=== PATIENT | female | born 1960 | race African-American/Black ===

== ENCOUNTER 2018-09-19 05:16 | Day surgery (SDC) | payer BC ==
[2018-09-17 16:46] VITALS: BMI 27.1
--- NOTE | 2018-09-19 05:02 | HP ---
[facility] - Chief Complaint Chief Complaint: This patient is here to have an endometrial polyp removed by hysteroscopy and polypectomy and D/C. History of Present Illness: This patient recently had a sonogram revealing the presence of an endometrial lesion possibly an endometrial polyp or fibroid. 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: No: Alzheimer's, CVA, Dementia, Migraine, Multiple Sclerosis, Peripheral Neuropathy, Parkinson's, Seizure, Syncope, TIA, Vertigo, Other Cardiovascular: No: AFIB, Aneurysm, Aortic Insufficiency, Aortic Stenosis, CAD, CHF, Deep Vein Thrombosis, HTN, Hyperlipdemia, MT, Mitral Insufficiency, Mitral Stenosis, Murmur, Pulmonary Hypertension, Other Pulmonary: No: Asthma, Bronchitis, Cancer, COPD, O2 Dependent, Pneumonia, Previously Intubated, Pulmonary Embolus, Pulmonary Fibrosis, Sleep Apnea, Other Gastrointestinal: No: Ascites, Cancer, Constipation, Crohn's Disease, Diverticulitis, Diverticulosis, Esophageal Varices, Gastritis, GERD, GI Bleed, Hemorrhoids, Hiatal Hernia, Inflamatory Bowel Disease, Irritable Bowel Disease, Pancreatitis, Peptic Ulcer Disease, Ulcerative Colitis, Other Hepatobiliary: No: Cirrhosis, Cholelithiasis, Cholecystitis, Choledocholithiasis , Hepatitis A, Hepatitis B, Hepatitis C, Other Renal/: No: Renal Failure, Renal Inusuff, BPH, Cancer, Hematuria, Hemodialysis , Neurogenic Bladder, Renal Calculi, UTI, Other Reproductive: No: Ectopic , Endometriosis, Fibroids, PID, Polycystic Ovary Syndrome, Postmenopausal, Other ...LMP: 06/02/12 ...: No ...: 2 ...Para: 2 Heme/Onc: No: Anemia, B12 Deficiency, Bleeding Disorder, Cancer, Current Chemotherapy, Current Radiation Therapy, Hemochromatosis, Hypercoaguable State, Myeloproliferative Synd, Sickle Cell Disease, Sickle Cell Trait, Thrombocytopenia, Other Infectious Disease: No: AIDS, C-Diff, Herpes Zoster, HIV, MRSA, STD's, Tuberculosis, VREF, Other Musculoskeletal: No: Bursitis, Chronic low back pain, Hemiparesis, Hemiplegia, Osteoarthritis, Paraplegia, Other Rheumatology: No: Fibromyalgia, Gout, Lupus, Rheumatoid Arthritis, Sarcoidosis, Vasculitis, Other ENT: No: Allergic Rhinitis, Sinusitis, Other Endocrine: No: Mccone's Disease, [place]'s Disease, Diabetes Insipidus, Diabetes Mellitus, Hyperparathyroidism, Hyperthyroidism, Hypothyroidism, Osteopenia, SIADH, Other Dermatology: No: Basal Cell, Cellulitis, Eczema, Melanoma, Psoriasis, Squamous Cell, Other - Current Medications Current Medications: Home Medications Medication Instructions Recorded Ibuprofen [Advil -] 400 mg PO PRN 09/17/18 Satellite Physical Exam - Physical Examination General Appearance: Well Nourished, Well Developed, Alert & Oriented x3 ENT: Clear, No Discharge, No masses Lung: Clear to auscultation Heart: Regular rate & rhythm, Normal S1, Normal S2 Breasts: Soft, Non-Tender, No masses bilaterally Abdomen: Soft, No tenderness, No CVA Extremities: No edema, No tenderness/swelling Pelvic Exam: Within normal limits External Genitalia, Within normal limits Vagina, Within normal limits Cervix, Other Uterus (fibroids), Other [employer] Neurological: Intact, Alert, Oriented Satellite Impression/Plan - Impression/Plan Impression: Endometrial polyp and fibroids of the uterus Operative Procedure: Hysteroscopy and polypectomy and D/C Date to be Performed: 09/19/18
[2018-09-19] MEDS ORDERED: PROPOFOL 20 ML ONE (07:09)
[2018-09-19] MEDS ORDERED: SUCCINYLCHOLINE CHLORIDE 200 MG/10 ML VIAL ONE (07:09)
[2018-09-19] MEDS ORDERED: MIDAZOLAM HCL 2 MG/2 ML SINGLE DOSE VIAL ONE (07:09)
[2018-09-19] MEDS ORDERED: DEXAMETHASONE SOD PHOSPHATE 4 MG/1 ML VIAL ONE (07:09)
[2018-09-19] MEDS ORDERED: DESFLURANE GAS 240 ML BOTTLE IH ONE (07:12)
[2018-09-19] MEDS ORDERED: SEVOFLURANE 250 ML BTL ONE (07:12)
[2018-09-19] MEDS ORDERED: oxyCODONE HCL 5 MG TABLET PO PRN (08:59)
[2018-09-19] MEDS ORDERED: LACTATED RINGERS SOLUTION 1,000 ML IV SCH (09:00)
--- NOTE | 2018-09-19 09:16 | OP ---
DATE OF OPERATION: 09/19/2018 PREOPERATIVE DIAGNOSIS: Endometrial polyp, fibroid uterus. POSTOPERATIVE DIAGNOSIS: Fibroid uterus. PROCEDURES PERFORMED: Hysteroscopy, followed by dilatation and curettage. SURGEON: Quinn Wiley MD ANESTHESIA: MAC anesthetic given by the fine grade bulldozer operator. ESTIMATED BLOOD LOSS: Approximately 15 mL. DESCRIPTION OF PROCEDURE: The patient was brought to the operating room, placed in the supine position, given MAC anesthesia, placed in the lithotomy position, prepped and draped in the usual manner. The patient was examined. The uterus was noted to be anteverted and enlarged by multiple fibroids. Adnexa negative. The anterior lip of the cervix was grasped with a tenaculum after the vagina was prepped and draped in the usual manner with Betadine. The uterus was then sounded to 9 cm. The cervix was dilated with James dilators. Hysteroscopy was carried out with the Symphion hysteroscope. The patient was noted to have bands of adhesions in the fundal area of the uterus. Polyp was not seen. Therefore, a dilatation and curettage was carried out. Scant tissue was obtained and sent to Pathology for analysis. The procedure was then terminated. The patient had a fluid deficit of 700 mL. Her estimated blood loss was approximately 15 mL. The patient did well and then was transferred to the recovery room for observation. QUINN WILEY M.D. [id number]
[2018-09-19 10:42] VITALS: BP 138/67; PULSE 69; TEMP 97.9
--- NOTE | 2018-09-22 17:54 | PATH ---
Surgical Pathology Report Patient Name: DANA COX [facility]. Rec. #: [id number] /Age/Gender: 1960 (Age: 58) / F Account: [id number] Location: [facility] SURGICAL Taken: 09/19/2018 Received: 09/19/2018 Reported: 09/22/2018 Physicians: Emil Wiley M.D. Specimen(s) Received ENDOMETRIAL CURETTINGS Clinical History Endometrial polyp Final Diagnosis ENDOMETRIAL CURETTINGS: STROMAL TISSUE, PREDOMINANTLY SMOOTH MUSCLE BUNDLES, AND SCANTY ENDOCERVICAL TISSUE WITH SQUAMOUS METAPLASIA. NO ENDOMETRIAL TISSUE PRESENT FOR EVALUATION, CLINICAL CORRELATION IS RECOMMENDED. Electronically Signed Jesus Art M.D. Gross Description Received in formalin labeled "endometrial curettings," is a 0.5 x 0.5 x 0.1 cm aggregate of santoro soft tissue fragments. The formalin is filtered and the specimen is entirely submitted in one cassette. /09/19/2018 saudi09/19/2018
== END 2018-09-19 10:40 | disposition home or self-care (01) ==
LOC: JASU-SURG 05:16
PROVIDERS: ATTEND Obstetrics & Gynecology
PROC: 0UDB7ZX Extraction of Endometrium, Via Natural or Artificial Opening, Diagnostic (ICD-10-PCS; principal; 2018-09-19 08:00)
PROC: 0UJD8ZZ Inspection of Uterus and Cervix, Via Natural or Artificial Opening Endoscopic (ICD-10-PCS; 2018-09-19 08:00)
DX: D25.9 Leiomyoma of uterus, unspecified (principal)
CPT/HCPCS: 88305-TC; 94760

== ENCOUNTER 2018-12-16 08:00 | Inpatient (IN) | payer BC ==
[2018-12-22 16:43] VITALS: BMI 26.6
--- NOTE | 2018-12-23 07:49 | HP ---
History & Physical Update - History History: No Change - Physical Physical: No Change - Assessment Assessment: No Change - Plan Plan: No Change (H&P reviwed, no changes)
[2018-12-23] MEDS ORDERED: SODIUM CHLORIDE 0.9% P/F 10 ML VIAL IJ ONE (08:14)
[2018-12-23] MEDS ORDERED: ceFAZolin SODIUM 1 GM VIAL ONE ×2 (08:14→09:35)
[2018-12-23] MEDS ORDERED: LIDOCAINE HCL/PF 2% SDV 5ML VIAL ONE (08:14)
[2018-12-23] MEDS ORDERED: KETOROLAC TROMETHAMINE 30 MG/1 ML VIAL ONE ×2 (08:14→09:35)
[2018-12-23] MEDS ORDERED: DEXAMETHASONE SOD PHOSPHATE 4 MG/1 ML VIAL ONE ×2 (08:14→09:35)
[2018-12-23] MEDS ORDERED: PROPOFOL 20 ML ONE ×2 (08:14→08:48)
[2018-12-23] MEDS ORDERED: ROCURONIUM BROMIDE 50 MG/5 ML VIAL ONE ×3 (08:15→10:05)
[2018-12-23] MEDS ORDERED: MIDAZOLAM HCL 2 MG/2 ML SINGLE DOSE VIAL ONE ×2 (08:28)
[2018-12-23] MEDS ORDERED: BUPIVACAINE HCL/PF 0.5% (5MG/ML) 10 ML VIAL ONE (08:29)
[2018-12-23] MEDS ORDERED: HYDROmorphone HCl 2 MG/ML VIAL ONE (08:48)
[2018-12-23] MEDS ORDERED: SUCCINYLCHOLINE CHLORIDE 200 MG/10 ML VIAL ONE (08:48)
[2018-12-23] MEDS ORDERED: fentaNYL CITRATE 250 MCG/5 ML VIAL ONE (08:48)
[2018-12-23] MEDS ORDERED: ceFAZolin 2 GRAM PREMIX BAG IVPB ONE (09:35)
[2018-12-23] MEDS ORDERED: GLYCOPYRROLATE 0.2 MG/1 ML VIAL ONE (10:05)
[2018-12-23] MEDS ORDERED: NEOSTIGMINE METHYLSULFATE 0.5 MG/ML - 10 ML MDV ONE (10:05)
[2018-12-23] MEDS ORDERED: IBUPROFEN 600 MG TABLET (FP) PO PRN (11:58)
[2018-12-23] MEDS ORDERED: IBUPROFEN 800 MG/8 ML IJ IVPB PRN (11:58)
[2018-12-23] MEDS ORDERED: ONDANSETRON 4 MG/2 ML VIAL IVPUSH PRN ×2 (11:58→12:28)
[2018-12-23] MEDS ORDERED: ELECTROLYTE-148 SOLN 1,000 ML IV SCH (12:00)
[2018-12-23] MEDS ORDERED: HYDROmorphone *PCA* 10MG/50ML DISP.SYRIN PCA ONE ×2 (13:20→13:30)
[2018-12-23] MEDS ORDERED: LABETALOL HCL 5 MG/1 ML (100MG/20 ML VIAL) IVPUSH ONE ×2 (14:00→14:10)
--- NOTE | 2018-12-23 14:03 | OP ---
DATE OF OPERATION: 12/23/2018 PREOPERATIVE DIAGNOSES: Endometrial cancer, fibroid uterus. POSTOPERATIVE DIAGNOSES: Endometrial cancer, fibroid uterus. SURGEON: Gareth Ford MD and Mattie Webb MD ANESTHESIA: General. ESTIMATED BLOOD LOSS: 200 mL. DESCRIPTION OF OPERATION: Patient was taken to the operating room. Under adequate general anesthesia in dorsal supine position, abdomen and perineum were prepped and draped. Pfannenstiel abdominal skin incision was made. Abdominal wall was cut layer by layer. Anterior peritoneum was exposed and incised. Upon entering the abdominal cavity, pelvic washing was done, and upper abdomen was checked, was normal. Bowels were packed away. Uterus was enlarged with multiple myomas. Bladder was normal. No pelvic adhesions. Then, bowels were packed away. [place] retractor was placed in the pelvic cavity for retraction. Then, both round ligaments were identified, clamped with a Elizabeth clamp, and suture, then cut. Then, the anterior leaf of broad ligament was opened, and the posterior leaf was opened. The ureter was identified bilaterally. Then, both infundibulopelvic ligaments were clamped with a right-angle clamp and cut and the clamp replaced with first 0 Vicryl tags and then with 0 Vicryl suture bilaterally. Then, bladder was further pushed down. Uterine artery was identified bilaterally, clamped with Quinten clamp, cut, and the clamp replaced with 0 Vicryl suture bilaterally. Paracervical area was clamped with Quinten clamp, cut, and the clamp replaced with 0 Vicryl suture bilaterally. Bladder was further pushed down. Then, cervicovaginal angle was clamped with Quinten clamp and cut, and the clamp replaced with 0 Vicryl suture bilaterally. Specimen removed in its entirety. Then, vaginal cuff was sutured with interrupted suture of 2-0 Vicryl. No active bleeding was seen. Pelvic cavity several times irrigated. Then, Dr. Webb did a pelvic node biopsy which she will dictate the operative report. After the completion of pelvic , several times irrigation was done. Ureters identified and were patent. Then, all the lap pads, sponge, and instrument count was correct. Peritoneum was closed with 0 Vicryl continuous suture. Muscles were brought together in suture of 0 Vicryl. Fascia was closed with 0 Vicryl continuous suture, subcutaneous fat with interrupted suture of 2-0 Vicryl, and the skin was closed with 4-0 Biosyn subcuticular continuous suture. Patient tolerated the procedure well, left the OR in good condition. GARETH FORD M.D. [id number]
[2018-12-23] MEDS ORDERED: HYDROmorphone *PCA* 10MG/50ML DISP.SYRIN PCA SCH (14:15)
[2018-12-23] MEDS ORDERED: LACTATED RINGERS SOLUTION 1,000 ML IV SCH (14:15)
--- NOTE | 2018-12-23 14:17 | OP ---
DATE OF OPERATION: 12/23/2018 PREOPERATIVE DIAGNOSIS: Endometrial cancer. POSTOPERATIVE DIAGNOSIS: Endometrial cancer. PROCEDURE: Exploratory laparotomy and bilateral pelvic lymph node dissection at time of total abdominal hysterectomy, bilateral salpingo-oophorectomy by Dr. Pranav Ford. SURGEON: Mattie Webb MD CO-SURGEON: Pranav Ford MD ANESTHESIA: General endotracheal. ESTIMATED BLOOD LOSS: A total of 250 mL for the entire procedure including hysterectomy. FINDINGS: Normal omentum, normal liver edge, smooth diaphragm, uterus approximately 14-16 weeks' size with multiple large fibroids. Bilateral tubes and ovaries appeared normal. Cervix appeared normal. There was no lymphadenopathy and no ascites and no intraabdominal evidence of disease. INDICATIONS: This is a 58-year-old with history of postmenopausal vaginal bleeding. She had a D&C done which showed no endometrial tissue and an endometrial biopsy in the office which showed an endometrioid adenocarcinoma, FIGO grade II. She had a CT scan of the chest, abdomen, and pelvis which was reportedly negative for metastatic disease. Patient was counseled regarding surgical management. Risks, benefits, indications, and alternatives were discussed with patient. All questions were answered. Informed consent was signed by Dr. Ford. DESCRIPTION OF PROCEDURE: The patient had received a TAP block in preoperative area. She was then taken to the operating room and placed in the dorsal supine position. General endotracheal anesthesia was obtained without difficulty. She was prepped and draped in normal sterile fashion. Calix catheter was placed in the bladder. A Pfannenstiel skin incision was made with a scalpel. This was carried down to the underlying fascia. The fascia was opened in the midline. The rectus fascia was dissected off the rectus muscle. The peritoneum was entered sharply, and this incision was extended inferiorly and superiorly with excellent visualization of the bladder and the bowel well below. Bowel was packed away with moist laparotomy sponges. A Ninfa self-retaining retractor was placed. Please note that the total abdominal hysterectomy and bilateral salpingo-oophorectomy was performed as dictated by Dr. Ford. After the specimen was removed off the field and the vaginal cuff had been closed, the left retroperitoneum was opened. The ureter was identified and retracted medially. Genitofemoral nerve was identified. The adventitial tissue overlying the external iliac artery was opened. The lymph nodes from the medial and lateral surface of the external iliac artery and vein were removed using surgical clips for hemostasis. The obturator space was opened. The obturator nerve was identified, and lymph nodes anterior to this were removed. Excellent hemostasis was seen. Surgicel was placed on the lymph node beds for added assurance. We then turned our attention to the opposite side. Again, the retroperitoneum was opened. The ureter was retracted medially, and genitofemoral nerve was identified. Adventitial tissue overlying the external iliac artery was opened, and lymph nodes from the distal half of the common iliac to the deep circumflex from the lateral and medial surface of the external iliac artery and vein were removed. Obturator space was opened. The obturator nerve was identified. There was very minimal tissue here to remove. The Surgicel was placed on the lymph node beds for added assurance. Excellent hemostasis was seen. There was no lymphadenopathy visualized. After the right pelvic lymph nodes were removed and handed off the field and Surgicel had been placed for added assurance, the pelvis was thoroughly irrigated with sterile water copiously. Excellent hemostasis was seen. All sponges and retractors were removed from the patient's abdomen. Sponge, needle, and instrument counts were correct x2. Peritoneum was closed in a running continuous fashion using 2-0 Vicryl. The fascia was closed with 0 Vicryl. Subcutaneous fat was irrigated with saline , and hemostasis was assured. Skin was closed with 4-0 Monocryl, and Dermabond was applied. The patient was extubated and transferred in stable condition to the PACU. Bill [id number] MTDD
[2018-12-23] MEDS: LACTATED RINGERS SOLUTION 1,000 ML IV SCH (17:00)
[2018-12-24 06:51] LABS: HEMATOCRIT 31.2 % (32.4-45.2); HEMOGLOBIN 10.1 GM/dL (10.7-15.3); MCH 24.7 pg (25.7-33.7); MCHC 32.6 g/dl (32.0-36.0); MEAN PLT VOLUME 8.8 fl (7.5-11.1); PLATELET COUNT 163 K/MM3 (134-434); RDW 14.6 % (11.6-15.6); WHITE BLOOD COUNT 7.4 K/mm3 (4.0-10.0)
[2018-12-24] MEDS ORDERED: SIMETHICONE 80 MG TAB.CHEW (FP) PO PRN (07:48)
[2018-12-24] MEDS ORDERED: BISACODYL 10 MG SUPP.RECT RC PRN (07:49)
[2018-12-24] MEDS: LACTATED RINGERS SOLUTION 1,000 ML IV SCH (08:12)
[2018-12-24] MEDS ORDERED: PCA PUMP KEY 1 EACH EACH ONE (10:04)
[2018-12-24] MEDS: ENOXAPARIN NA (PORCINE) 40 MG/0.4 ML DISP.SYRIN SQ SCH (10:23)
--- NOTE | 2018-12-24 10:45 | PN ---
Progress Note (short form) - Note Progress Note: Anesthesiology Post-op 58 y.o. woman POD#1 s/p GERTRUDIS/BSO under GA and TAP blocks. Pt. is resting comfortably in bed. She does c/o some pain but states that it improves with medication. She denies n/v. No apparent anesthesia-related issues. VSS. 58 y.o. woman with stable post-operative course. Continue management as per primary team.
--- NOTE | 2018-12-24 13:22 | PATH ---
Cytology Non-Gynecological Report Patient Name: DANA COX [facility]. Rec. 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 Specimen(s) Received PELVIC WASHINGS Clinical History None given Final Diagnosis PELVIC WASHING: SATISFACTORY FOR EVALUATION. BENIGN (NO MALIGNANT CELLS IDENTIFIED). BENIGN MESOTHELIAL CELLS, FRAGMENTS OF SKELETAL MUSCLE, AND BLOOD PRESENT. Comment: See [id number] Electronically Signed Fermin Marrero M.D. Gross Description Approximately 40 cc of bloody fluid received fresh. One cytofunnel and one cellblock prepared.
[2018-12-24] MEDS: oxyCODONE HCL 5 MG TABLET PO PRN (14:35)
[2018-12-24] MEDS: ACETAMINOPHEN 325 MG TABLET (FP) PO PRN (14:39)
--- NOTE | 2018-12-24 14:57 | PN ---
Progress Note (short form) - Note Progress Note: pod 1 doing well, sitting in chair ,comfortable, passing gas Current Medications Generic Name Dose Route Start Last Admin Trade Name Freq PRN Reason Stop Dose Admin Acetaminophen 650 mg 12/24/18 07:47 12/24/18 14:39 Tylenol - PO 650 mg Q6H PRN Administration PAIN LEVEL 1-5 Bisacodyl 10 mg 12/24/18 07:49 Dulcolax Suppository - RC PRN PRN CONSTIPATION Enoxaparin Sodium 40 mg 12/24/18 10:00 12/24/18 10:23 Lovenox - SQ 40 mg DAILY ERNESTO Administration Parenteral Electrolytes 1,000 mls @ 125 mls/hr 12/23/18 12:00 Plasma-Lyte 148 - IV ASDIR ERNESTO Lactated Ringer's 1,000 mls @ 125 mls/hr 12/23/18 12:30 12/24/18 08:12 Lactated Ringers Solution IV 125 mls/hr ASDIR ERNESTO Administration Ibuprofen 600 mg 12/23/18 11:58 Motrin - PO Q6H PRN FEVER Ibuprofen 800 mg 12/23/18 11:58 Caldolor Injection - IVPB Q6H PRN Fever - If PO not effective. Ondansetron HCl 4 mg 12/23/18 11:58 Zofran Injection IVPUSH Q6H PRN NAUSEA Ondansetron HCl 4 mg 12/23/18 12:28 Zofran Injection IVPUSH Q6H PRN NAUSEA AND/OR VOMITING Oxycodone HCl 5 mg 12/23/18 11:58 12/24/18 14:35 Roxicodone - PO 5 mg Q4H PRN Administration PAIN LEVEL 1-5 Simethicone 80 mg 12/24/18 07:48 Mylicon - PO Q4H PRN GAS CBC, BMP 12/24/18 06:15 CBC, BMP 12/24/18 06:15 Last Vital Signs Temp Pulse Resp BP Pulse Ox 100.1 F H 77 20 103/47 L 100 12/24/18 11:49 12/24/18 11:49 12/24/18 11:49 12/24/18 11:49 12/23/18 14:45 abdomen soft, no distension, no cva , BS present incision dry, clean no vaginal bleeding or discharge plan ambulate, advance diet encourage deep breathing pain management plan for d/c home in am
--- NOTE | 2018-12-24 15:33 | PATH ---
Surgical Pathology Report Patient Name: DANA COX [facility]. Rec. 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 No definite myometrial invasion identified on human resources hr representative frozen section. No endocervical involvement grossly identified. Irina Marrero M.D., 12/23/2018 Final Diagnosis A. UTERUS AND CERVIX WITH BILATERAL FALLOPIAN TUBES AND OVARIES, HYSTERECTOMY AND BILATERAL SALPINGO-OOPHORECTOMY: ENDOMETRIOID ADENOCARCINOMA, FIGO GRADE 1 OF 3, 3.5 X 2.3 CM IN GREATEST DIMENSION, LIMITED TO THE ENDOMETRIUM AND SUPERFICIAL ADENOMYOSIS (APPROXIMATELY 1 MM FROM THE ENDOMETRIUM). NO MYOMETRIAL INVASION, LYMPH-VASCULAR INVASION, CERVICAL STROMAL INVASION, ENDOCERVICAL INVOLVEMENT, OR UTERINE SEROSAL INVOLVEMENT IDENTIFIED. NO PARAMETRIAL INVOLVEMENT IDENTIFIED. UTERUS SHOWS MULTIPLE LEIOMYOMATA. CERVIX SHOWS NO SIGNIFICANT PATHOLOGIC FINDINGS. BENIGN BILATERAL FALLOPIAN TUBES AND OVARIES PRESENT. B. LYMPH NODES, LEFT PELVIC, EXCISION: NO METASTATIC CARCINOMA IDENTIFIED IN 6 LYMPH NODES (0/6). C. LYMPH NODES, RIGHT PELVIC, EXCISION: NO METASTATIC CARCINOMA IDENTIFIED IN 2 LYMPH NODES (0/2). Comment: Also see pelvic washing specimen [id number]. MisMatch Repair Protein analysis by immunohistochemistry is pending, and a report will follow. Comments Endometrial Carcinoma :Surgical Pathology Cancer Case Summary Based on AJCC 8th edition Procedure _X__ Total hysterectomy and bilateral salpingo-oophorectomy Tumor Size Greatest dimension: 3.5 cm Histologic Type _X__ Endometrioid carcinoma, NOS Histologic Grade _X__ FIGO grade 1 Myometrial Invasion _X__ Not identified Uterine Serosa Involvement _X__ Not identified Cervical Stromal Involvement _X__ Not identified Other Tissue/Organ Involvement _X__ Not identified Margins (required only if cervix and/or parametrium/paracervix is involved by carcinoma) Ectocervical/Vaginal Cuff Margin Uninvolved by carcinoma Parametrial/Paracervical Margin Uninvolved by carcinoma Lymphovascular Invasion _X__ Not identified Regional Lymph Nodes Lymph Node Examination (required only if lymph nodes are present in the specimen) Pelvic Node Examination Number of Pelvic Nodes with Macrometastasis (greater than 2 mm): 0 Number of Pelvic Nodes with Micrometastasis (greater than 0.2 mm and up to 2 mm): 0 Number of Pelvic Nodes with Isolated Tumor Cells (0.2 mm or less): 0 Total Number of Pelvic Nodes Examined (sentinel and non-sentinel): 8 Number of Pelvic [place] Nodes Examined: 8 Laterality of Pelvic Node(s) Examined: Left and Right Para-aortic Lymph Nodes _X__ No para-aortic nodes submitted or found Pathologic Stage Classification (pTNM, AJCC 8th Edition) Primary Tumor (pT) _X__ pT1a: Tumor limited to endometrium or invading less than half of the myometrium Regional Lymph Nodes (pN) (select all that apply) Category (pN) _X__ pN0: No regional lymph node metastasis Electronically Signed Fermin Marrero M.D. Addendum Reported: 12/25/2018 Addendum Diagnosis Immunohistochemical stains for MisMatch Repair Protein Analysis on block A10 performed at [facility] in [place], [place] ([id number]) and interpreted at [facility] show the following: RESULTS: HMLH-1 INTACT NUCLEAR EXPRESSION HMSH-2 INTACT NUCLEAR EXPRESSION HMSH-6 INTACT NUCLEAR EXPRESSION PMS2 INTACT NUCLEAR EXPRESSION INTERPRETATION: No loss of nuclear expression of MMR proteins: low probability of microsatellite instability-high (MSI-H) Fermin Marrero M.D. Gross Description A. Received fresh labeled "uterus and cervix, bilateral tubes and ovaries," is a 403 g uterus with an attached cervix and bilateral attached adnexa. The specimen measures 12 cm from superior to inferior, 7.5 cm from left to right and 9.5 cm from anterior to posterior. The serosa is santoro-red and smooth. The attached cervix measures 3.5 cm in length and averages 2 cm in diameter. The ectocervix is santoro, smooth and glistening. The endocervix is unremarkable. The endometrial cavity measures 6.5 cm in length and 2.3 cm from cornu to cornu. The endometrium displays a 3.5 x 2.3 cm santoro mass. The mass appears superficial, predominately in the central posterior aspect of the endometrium. The remaining endometrium averages 0.1 cm in thickness. The myometrium displays abundant large bulging nodules, measuring up to 6 cm in greatest dimension. The cut surface of the nodules santoro and rubbery with whorled architecture. No areas of hemorrhage or necrosis are identified. The remaining myometrium is santoro-pink and measures up to 4.8 cm in thickness. The right fimbriated fallopian tube measures 3.5 cm in length. The outer surface is santoro- red and smooth. Sectioning reveals an unremarkable lumen. The right ovary measures 2.5 x 1.7 x 1.1 cm. The outer surface is santoro-yellow, convoluted and smooth. Sectioning reveals unremarkable ovarian parenchyma. The left fimbriated fallopian tube measures 3.5 cm in length. The outer surface is santoro-red and smooth. Sectioning reveals an unremarkable lumen. The left ovary is 2.5 x 1.7 x 1.2 cm. The outer surface is santoro-red and smooth. Sectioning reveals unremarkable ovarian parenchyma. A human resources hr representative section of the mass is submitted for frozen section. Transfusion Aide sections are submitted in 34 cassettes as follows: 1-frozen section residue; 2-anterior cervix; 3-posterior cervix; 4-anterior lower uterine segment; 5-posterior lower uterine segment; 6-right parametrium; 7-left parametrium; 6-94-fudejdkz endomyometrium sequentially submitted from superior to inferior; 83-56-gfhaoluwr endomyometrium sequentially submitted from superior to inferior; 40-80-pjgfhtm intramural nodule; 79-48-ptnxbseakf intramural nodules; 29-right fallopian tube fimbria; 30-cross sections of right fallopian tube; 31-right ovary; 32-left fallopian tube fimbria; 33-cross sections of left fallopian tube; 34-left ovary. B. Received in formalin labeled "left pelvic lymph node," is a 2.5 x 0.7 x 0.5 cm pink-santoro lymph node. Also received within the same container is a 3.5 x 2.5 x 0.3 cm aggregate of red-yellow, lobulated soft tissue. The lymph node is bisected and the specimen is entirely submitted in 2 cassettes as follows: 1-bisected lymph node; 2-remaining soft tissue. C. Received in formalin labeled "right pelvic lymph node," is a 3.8 x 3.5 x 0.3 cm aggregate of red yellow, lobulated soft tissue, possibly containing a lymph node. The specimen is entirely submitted in 2 cassettes. 12/23/2018 [facility]12/23/2018
[2018-12-25] MEDS: oxyCODONE HCL 5 MG TABLET PO PRN (06:00)
[2018-12-25] MEDS: ACETAMINOPHEN 325 MG TABLET (FP) PO PRN (06:01)
[2018-12-25 08:58] VITALS: BP 114/73; PULSE 73; TEMP 98.8
[2018-12-25 09:43] LABS: BASO % 0.2 % (0-2.0); EOS % 0.3 % (0-4.5); HEMATOCRIT 30.5 % (32.4-45.2); HEMOGLOBIN 9.9 GM/dL (10.7-15.3); MCH 24.9 pg (25.7-33.7); MCHC 32.5 g/dl (32.0-36.0); MEAN CELL VOLUME 76.5 fl (80-96); MEAN PLT VOLUME 8.7 fl (7.5-11.1); MONO % 7.7 % (3.8-10.2); NEUT % 79.8 % (42.8-82.8); PLATELET COUNT 165 K/MM3 (134-434); RBC 3.99 M/mm3 (3.60-5.2); RDW 14.3 % (11.6-15.6); WHITE BLOOD COUNT 6.1 K/mm3 (4.0-10.0)
[2018-12-25] MEDS: ENOXAPARIN NA (PORCINE) 40 MG/0.4 ML DISP.SYRIN SQ SCH (09:52)
--- NOTE | 2018-12-25 13:31 | DS ---
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 Temperature 98.8 F 12/25/18 08:57 Pulse Rate 73 12/25/18 08:57 Respiratory Rate 20 12/25/18 08:57 Blood Pressure 114/73 12/25/18 08:57 O2 Sat by Pulse Oximetry (%) 100 12/23/18 14:45 Constitutional: Yes: Well Nourished, No Distress, Calm Eyes: Yes: WNL, Conjunctiva Clear, EOM Intact HENT: Yes: WNL, Atraumatic, Normocephalic Neck: Yes: WNL, Supple, Trachea Midline Cardiovascular: Yes: WNL, Regular Rate and Rhythm Respiratory: Yes: WNL, Regular, CTA Bilaterally Gastrointestinal: Yes: WNL, Normal Bowel Sounds ...Rectal Exam: Yes: WNL Renal/: Yes: WNL Breast(s): Yes: WNL Musculoskeletal: Yes: WNL Extremities: Yes: WNL Edema: No Integumentary: Yes: WNL Wound/Incision: Yes: Clean/Dry, Well Approximated, Sutures Intact Neurological: Yes: WNL, Alert, Oriented ...Motor Strength: WNL Psychiatric: Yes: WNL, Alert, Oriented Labs: CBC, BMP 12/25/18 09:20 Discharge Summary Reason For Visit: POSTMENOPAUSAL BLEEDING,LEIOMYOMA OF UTERUS Procedures: Principal: lashell, bso Other Procedures: pelvic lymph node disection Condition: Good - Instructions Diet, Activity, Other Instructions: regular diet, follow up office 2 weeks, if fever, pain, heavy vaginal bleeding call md Referrals: Pranav Ford MD [Staff Physician] - Disposition: HOME - Home Medications Comprehensive Discharge Medication List: Ambulatory Orders Ibuprofen [Motrin -] 600 mg PO QID #28 tablet 12/24/18
== END 2018-12-25 14:30 | disposition home or self-care (01) | DRG 741 ==
LOC: JSAMEDAYSX 12-23 06:47 → J3W 12-23 14:52
PROVIDERS: ADMIT Obstetrics & Gynecology; ATTEND Obstetrics & Gynecology
PROC: 0UT20ZZ Resection of Bilateral Ovaries, Open Approach (ICD-10-PCS; 2018-12-23)
PROC: 0UT70ZZ Resection of Bilateral Fallopian Tubes, Open Approach (ICD-10-PCS; 2018-12-23)
PROC: 07BC0ZX Excision of Pelvis Lymphatic, Open Approach, Diagnostic (ICD-10-PCS; 2018-12-23)
PROC: 0WJJ0ZZ Inspection of Pelvic Cavity, Open Approach (ICD-10-PCS; 2018-12-23)
PROC: 0UT90ZZ Resection of Uterus, Open Approach (ICD-10-PCS; principal; 2018-12-23 09:00)
DX: C54.1 Malignant neoplasm of endometrium (principal); D25.9 Leiomyoma of uterus, unspecified
CPT/HCPCS: 36415; 85025; 85027; 86850; 86900; 86901; 88108; 88305-TC; 88307-TC; 88309-TC; 88331-TC; 94760

== ENCOUNTER 2019-09-29 06:00 | Emergency (ER) | payer BC ==
[2019-09-29 07:05] VITALS: TEMP 98; BMI 27.5
--- NOTE | 2019-09-29 07:41 | PDOC ---
History of Present Illness - General Chief Complaint: Hematuria Stated Complaint: BLOOD IN URINE Time Seen by Provider: 09/29/19 07:25 History Source: Patient Exam Limitations: No Limitations Past History - Past Medical History Allergies/Adverse Reactions: Allergies Allergy/AdvReac Type Severity Reaction Status Date / Time No Known Drug Allergies Allergy Verified 09/29/19 07:05 Home Medications: Ambulatory Orders Cephalexin [Keflex] 500 mg PO BID #13 capsule 09/29/19 Ibuprofen [Motrin -] 600 mg PO PRN 09/29/19 Anemia: Yes ("yrs ago") Asthma: No Cancer: No Cardiac Disorders: No CVA: No COPD: No CHF: No Dementia: No Diabetes: No GI Disorders: No Disorders: No HTN: No Hypercholesterolemia: No Liver Disease: No Seizures: No Thyroid Disease: No - Surgical History Abdominal Surgery: No Appendectomy: No Cardiac Surgery: No Cholecystectomy: No Lung Surgery: No Neurologic Surgery: No Orthopedic Surgery: No - Immunization History Immunization Up to Date: No - Psycho Social/Smoking Cessation Hx Smoking History: Never smoked Have you smoked in the past 12 months: No Hx Alcohol Use: No Drug/Substance Use Hx: No Substance Use Type: Alcohol Hx Substance Use Treatment: No *Physical Exam - Vital Signs Last Vital Signs Temp Pulse Resp BP Pulse Ox 98.0 F 71 16 152/67 100 09/29/19 06:05 09/29/19 06:05 09/29/19 06:05 09/29/19 06:05 09/29/19 06:05 - Physical Exam General Appearance: No: Apparent Distress Respiratory/Chest: positive: Lungs Clear, Normal Breath Sounds. negative: Respiratory Distress Cardiovascular: positive: Regular Rhythm, Regular Rate, S1, S2. negative: Murmur Gastrointestinal/Abdominal: positive: Normal Bowel Sounds, Soft. negative: Tender, Distended, Guarding, Rebound Musculoskeletal: negative: CVA Tenderness Integumentary: positive: Normal Color Neurologic: positive: Alert ED Treatment Course - LABORATORY CBC & Chemistry Diagram: 09/29/19 07:35 09/29/19 07:35 Medical Decision Making - Medical Decision Making 59 y/o F hx of uterine fibroids s/p GERTRUDIS and BSO 12/2018 presents with increased urgency and slight blood in urine noted this morning along with mild dysuria. Denies fever, sob, cp, abd pain, n/v, flank pain, vaginal bleeding, blood in stools. Likely cystitis Not suspicious for pyelonephritis or kidney stones Plan: Basic labs, UA, UCx 09/29/19 07:40 Labs unremarkable UA + for infection Will treat for UTI No prior urine cultures available for review Given dose of Keflex 09/29/19 08:45 Discharge - Discharge Information Problems reviewed: Yes Clinical Impression/Diagnosis: UTI (urinary tract infection) Qualifiers: Urinary tract infection type: acute cystitis Hematuria presence: with hematuria Qualified Code(s): N30.01 - Acute cystitis with hematuria Condition: Fair Disposition: HOME - Admission No - Additional Discharge Information Prescriptions: Cephalexin [Keflex] 500 mg PO BID #13 capsule Prescription Drug Monitoring Program (I-STOP) results: I-STOP not reviewed - Follow up/Referral Referrals: Sterling Barclay MD [Primary Care Provider] - 2 Days - Patient Discharge Instructions Patient Printed Discharge Instructions: DI for Urinary Tract Infection (UTI) Additional Instructions: Thank you for choosing [facility]. It was a pleasure taking care of you. You were found to have urine infection Please take the antibiotics as prescribed Drink at least 2L of water daily Follow-up with your doctor in 2 days Return to the Emergency Department if your symptoms worsen or persist or have other concerning symptoms. - Post Discharge Activity
[2019-09-29] MEDS ORDERED: SODIUM CHLORIDE 1,000 ML IV STA (08:05)
[2019-09-29 08:16] LABS: BASO % 0.3 % (0-2.0); EOS % 0.4 % (0-4.5); HEMOGLOBIN 12.8 GM/dL (10.7-15.3); LYMPH % 11.7 % (8-40); MCH 24.2 pg (25.7-33.7); MCHC 32.1 g/dl (32.0-36.0); MEAN CELL VOLUME 75.6 fl (80-96); MONO % 7.6 % (3.8-10.2); PLATELET COUNT 208 K/MM3 (134-434); RBC 5.29 M/mm3 (3.60-5.2); RDW 14.9 % (11.6-15.6); WHITE BLOOD COUNT 6.7 K/mm3 (4.0-10.0)
[2019-09-29 08:38] LABS: ALBUMIN 3.8 g/dl (3.4-5.0); BILIRUBIN,TOTAL 0.2 mg/dL (0.2-1); BLOOD UREA NITROGEN 14.5 mg/dL (7-18); CALCIUM 9.3 mg/dL (8.5-10.1); POTASSIUM 4.5 mmol/L (3.5-5.1); TOT PROT 7.8 g/dl (6.4-8.2)
[2019-09-29 08:42] LABS: EPI CELLS 0.4 /HPF (0-5/HPF); HYALINE CASTS 4 /lpf (0-8); URINE APPEARANCE CLOUDY; URINE BACTERIA 1.9 /hpf (NEGATIVE); URINE BILIRUBIN NEGATIVE (NEGATIVE); URINE COLOR YELLOW; URINE GLUCOSE (UA) NEGATIVE (NEGATIVE); URINE KETONE NEGATIVE (NEGATIVE); URINE LEUK ESTERASE 2+ (NEGATIVE); URINE NITRITE NEGATIVE (NEGATIVE); URINE PROTEIN 2+ (NEGATIVE); URINE RBC 12 /hpf (0-4); URINE UROBILINOGEN 0.2 mg/dL (0.2-1.0); URINE WBC 123 /hpf (0-5)
[2019-09-29] MEDS ORDERED: CEPHALEXIN MONOHYDRATE 500 MG CAPSULE (UD) PO ONE (08:45)
[2019-09-29] MEDS ORDERED: CEPHALEXIN MONOHYDRATE 500 MG CAPSULE (UD) ONE (08:53)
[2019-09-29 09:03] VITALS: BP 122/56; PULSE 60
== END 2019-09-29 09:04 | disposition home or self-care (01) ==
LOC: JER 06:00
PROC: 3E0337Z Introduction of Electrolytic and Water Balance Substance into Peripheral Vein, Percutaneous Approach (ICD-10-PCS; principal; 2019-09-29)
DX: N30.01 Acute cystitis with hematuria (principal); Z87.42 Personal history of other diseases of the female genital tract; Z90.710 Acquired absence of both cervix and uterus; Z90.79 Acquired absence of other genital organ(s); Z90.722 Acquired absence of ovaries, bilateral
CPT/HCPCS: 36415; 80053; 81003; 85025; 87086; 99282-25; J7030